=== PATIENT | female | born 1985 | race Caucasian/White ===

== ENCOUNTER 2021-01-31 10:28 | Emergency (ER) | payer OTHER ==
[~2021-01-31] VITALS: Ht 160 cm; Wt 63.5 kg
--- NOTE | 2021-01-31 10:45 | NUR ---
SOB WHILE DRIVING TO WORK ASSOCIATED WITH PAIN IN RUQ RADIATING TO R FLANK. PATIENT A/OX4, BREATHING EVEN AND UNLABORED, NO SOB NOTED, NEEDS ATTENDED. DR. ALCANTARA AT BEDSIDE FOR EVAL.
--- NOTE | 2021-01-31 10:59 | NUR ---
URINE SENT TO LAB.
[2021-01-31 11:06] LABS: BILIRUBIN,URINE Negative (NEGATIVE); COLOR,URINE YELLOW (YELLOW); LEUKOCYTE ESTERASE ,URINE Negative (NEGATIVE); NITRITE, URINE Negative (NEGATIVE); PROTEIN,URINE Negative (NEGATIVE); UGLUCOSE Negative (NEGATIVE); UROBILINOGEN,URINE 0.2 EU/dL (0.2)
[2021-01-31 11:16] LABS: BASOPHILS # (AUTO) 0.1 /CMM (0.0-0.2); BASOPHILS % (AUTO) 1.1 % (0.0-2.0); EOSINOPHILS % (AUTO) 5.2 % (0.0-6.0); HEMATOCRIT 34 % (33-45); HEMOGLOBIN 10.8 g/dL (11.5-14.8); LYMPHOCYTES # (AUTO) 1.5 /CMM (0.8-4.8); MEAN CORPUSCULAR HGB CONC 32 g/dl (31.0-36.0); MEAN CORPUSCULAR VOLUME 84 fL (82-100); MONOCYTES # (AUTO) 0.3 /CMM (0.1-1.30); MONOCYTES % (AUTO) 5.3 % (2.0-12.0); NEUTROPHILS # (AUTO) 3.9 /CMM (1.8-8.9); NEUTROPHILS % (AUTO) 64.4 % (43.0-81.0); PLATELET COUNT (AUTO) 403 /CMM (150-450); RED BLOOD CELL COUNT(AUTO) 4.03 MIL/uL (4.0-5.2); WHITE BLOOD COUNT (AUTO) 6.1 K/uL (4.3-11.0)
[2021-01-31 11:29] LABS: ALBUMIN 4.4 g/dL (3.4-5.0); BILIRUBIN,DIRECT 0.1 mg/dL (0.0-0.2); BILIRUBIN,TOTAL 0.3 mg/dL (0.2-1.0); CALCIUM, SERUM 8.6 mg/dL (8.5-10.1); CREATININE 0.7 mg/dL (0.6-1.3); POTASSIUM 3.7 mmol/L (3.5-5.1); TOTAL PROTEIN, SERUM 7.9 g/dL (6.4-8.2)
--- NOTE | 2021-01-31 11:40 | NUR ---
US AT BEDSIDE.
[2021-01-31] MEDS ORDERED: FAMO-131 PO (11:51)
[2021-01-31 12:00] VITALS: BP 126/85
--- NOTE | 2021-01-31 12:00 | NUR ---
Patient a/ox4, breathing even and unlabored, no sob noted, needs attended. Patient discharged to home in stable condition. Written and verbal after care instructions given. Patient verbalizes understanding of instruction.
== END 2021-01-31 12:01 | disposition home or self-care (01) ==
LOC: ER 10:38
DX: K80.20 Calculus of gallbladder without cholecystitis without obstruction (principal); Z90.89 Acquired absence of other organs; Z79.899 Other long term (current) drug therapy
CPT/HCPCS: 36415; 71045-TC; 76705-TC; 80048-TC; 80076-TC; 83690-TC; 84703-TC; 85025-TC